=== PATIENT | female | born 1970 | race African-American/Black ===

== ENCOUNTER 2022-01-22 16:51 | Emergency (ER) | payer OTHER ==
[2022-01-22] MEDS ORDERED: Clindamycin 150 MG CAP ONE (18:51)
== END 2022-01-22 19:07 | disposition home or self-care (01) ==
LOC: NAV ERS 16:51
DX: L03.312 Cellulitis of back [any part except buttock and flank] (principal); I10 Essential (primary) hypertension; Z79.899 Other long term (current) drug therapy
CPT/HCPCS: 99283